=== PATIENT | female | born 1980 | race Caucasian/White ===

== ENCOUNTER 2017-02-03 10:12 | Emergency (ER) | payer MEDICAID ==
[~2017-02-03] VITALS: Wt 77.2 kg
[~2017-02-03 10:12] MED LIST: IBUP-1542 PO
[2017-02-03] MEDS ORDERED: LIDOCAINE/MYLANTA 40 ML BTL PO STA (10:42)
[2017-02-03] MEDS ORDERED: FAMOTIDINE 20 MG INJ IV STA (10:42)
[2017-02-03] MEDS ORDERED: SOD CHLORIDE 0.9% 1,000 ML IV STA (10:42)
[2017-02-03] MEDS ORDERED: ONDANSETRON 4 MG INJ IV STA (10:42)
[2017-02-03] MEDS ORDERED: KETOROLAC 30 MG INJ IV STA (10:42)
[2017-02-03 11:31] LABS: BASOPHILS % 0.3 % (0.0-2.0); EOSINOPHILS # 0.1 10^3/ul (0.0-0.5); HEMATOCRIT 37.3 % (37.0-47.0); HEMOGLOBIN 12.9 g/dl (12.0-16.0); LYMPHOCYTES # 2.2 10^3/ul (0.8-2.9); LYMPHOCYTES % 20.8 % (15.0-51.0); MEAN CORPUSCULAR HEMOGLOBIN 29.5 pg (29.0-33.0); MEAN CORPUSCULAR HGB CONC 34.6 g/dl (32.0-37.0); MEAN CORPUSCULAR VOLUME 85.2 fl (82.0-101.0); MEAN PLATELET VOLUME 10.2 fl (7.4-10.4); MONOCYTE # 0.6 10^3/ul (0.3-0.9); MONOCYTES % 5.3 % (0.0-11.0); NEUTROPHILS % 72.3 % (39.0-77.0); PLATELET COUNT 263 10^3/UL (140-415); RED BLOOD COUNT 4.38 10^6/ul (4.20-5.40); WHITE BLOOD COUNT 10.6 10^3/ul (4.8-10.8)
[2017-02-03 11:33] LABS: ADD UMIC NO; UR ASCORBIC ACID NEGATIVE (NEGATIVE); UR BILIRUBIN (Dip) NEGATIVE (NEGATIVE); UR BLOOD (Dip) NEGATIVE (NEGATIVE); UR CLARITY CLEAR (CLEAR); UR COLOR STRAW (YELLOW); UR GLUCOSE (Dip) NEGATIVE (NEGATIVE); UR KETONES (Dip) NEGATIVE (NEGATIVE); UR LEUKOCYTE ESTERASE (Dip) NEGATIVE Leu/ul (NEGATIVE); UR NITRITE (Dip) NEGATIVE (NEGATIVE); UR SPECIFIC GRAVITY (Dip) 1.008 (1.003-1.030); UR TOTAL PROTEIN (Dip) NEGATIVE (NEGATIVE); UR UROBILINOGEN (Dip) NEGATIVE (NEGATIVE)
--- NOTE | 2017-02-03 11:49 | RADRPT ---
PROCEDURE: US Abdomen (right upper quadrant). CLINICAL INDICATION: Abdominal pain. TECHNIQUE: Multiple real-time longitudinal and transverse images of the right upper quadrant of th e abdomen were acquired utilizing a curved array transducer. Images were reviewed on a high-resoluti on PACS workstation. COMPARISON: 03/23/2016. FINDINGS: The liver is normal in size with a slightly coarsened echotexture suggesting mild steatosis without focal mass or intrahepatic biliary dilatation. There is normal hepatopedal flow within the main por fannie vein. The gallbladder is surgically absent. The common bile duct measures 4.5 mm in maximal di mension. The visualized portions of the pancreas are unremarkable with obscuration of the tail of t he pancreas. No free fluid is identified. The right kidney measures 11.2 cm in length. There is normal echogenicity within the right kidney. There is no perinephric fluid collection. No hydronephrosis, mass, or calculus is seen. IMPRESSION: 1. Mildly coarsened echotexture of the liver suggesting mild steatosis. 2. Previous cholecystectomy without biliary tree dilatation. RPTAT: [facility] Physician Robert Date Time Electronically viewed and signed by Physician Robert on 02/03/2017 11:49 /
--- NOTE | 2017-02-03 12:02 | ERD ---
ER Documentation Chief Complaint Date/Time DATE: 02/03/17 TIME: 11:57 Chief Complaint low abd pain with nausea and vomiting and no dysuria noted. HPI This is a 36-year-old female presenting to the emergency department with upper epigastric abdominal pain, nausea and vomiting starting earlier today. Patient states since early this morning she has had 2 episodes of nonbloody nonbilious emesis and 6 episodes of nonbloody loose stool. Patient states she has epigastric pain that radiates upwards towards chest. No heart palpitations or chest pain. Patient states pain feels similar to when she had cholecystitis. Patient describes pain as constant and pulsating and rates pain 7/10. No back or flank pain. No lower abdominal pain. No dysuria, hematuria, urinary frequency or urgency. Patient denies fever or chills. Last menstrual period January 14, 2017. ROS All systems reviewed and are negative except as per history of present illness. Medications Home Meds Active Scripts Ondansetron Hcl* (Zofran*) 4 Mg Tablet, 4 MG PO Q6H for NAUSEA AND/OR VOMITING, #10 TAB Prov:TAMARA DAILEY NP 02/03/17 Ibuprofen* (Motrin*) 400 Mg Tab, 400 MG PO Q6, #30 TAB Prov:TAMARA DAILEY NP 02/03/17 Tramadol HCl (Tramadol HCl) 50 Mg Tablet, 50 MG PO Q4 Y for PAIN, #20 TAB Prov:TAMARA DAILEY NP 02/03/17 Ibuprofen* (Motrin*) 600 Mg Tab, 600 MG PO Q6, #15 TAB Prov:TAMARA DAILEY NP 03/23/16 Allergies Allergies: Coded Allergies: No Known Allergy (Unverified , 03/23/16) PMhx/Soc History of Surgery: No Anesthesia Reaction: No Hx Neurological Disorder: No Hx Respiratory Disorders: No Hx Cardiac Disorders: No Hx Psychiatric Problems: No Hx Miscellaneous Medical Probl: Yes (CHOLECYSTITIS) Hx Alcohol Use: No Hx Substance Use: No Hx Tobacco Use: No Smoking Status: Never smoker Physical Exam Vitals Vital Signs Date Time Temp Pulse Resp B/P Pulse Ox O2 Delivery O2 Flow Rate FiO2 02/03/17 13:08 98.3 63 20 108/61 99 Room Air 02/03/17 10:17 98.6 80 21 140/75 98 Physical Exam Const: No acute distress, alert Head: Atraumatic Eyes: Normal Conjunctiva ENT: Normal External Ears, Nose and Mouth. Neck: Full range of motion..~ No meningismus. Resp: Clear to auscultation bilaterally. No wheezing, rhonchi or crackles. No stridor or labored breathing. Cardio: Regular rate and rhythm, no murmurs Abd: Soft, non distended. Normal bowel sounds, Tenderness to epigastric region and right upper quadrant abdomen. Negative [place] sign. Skin: No petechiae or rashes Back: No midline or flank tenderness Ext: No cyanosis, or edema Neur: Awake and alert Psych: Normal Mood and Affect Result Diagram: 02/03/17 1100 02/03/17 1100 Results 24 hrs Laboratory Tests Test 02/03/17 11:00 02/03/17 11:10 White Blood Count 10.610^3/ul Red Blood Count 4.3810^6/ul Hemoglobin 12.9g/dl Hematocrit 37.3% Mean Corpuscular Volume 85.2fl Mean Corpuscular Hemoglobin 29.5pg Mean Corpuscular Hemoglobin Concent 34.6g/dl Red Cell Distribution Width 13.0% Platelet Count 21013^3/UL Mean Platelet Volume 10.2fl Neutrophils % 72.3% Lymphocytes % 20.8% Monocytes % 5.3% Eosinophils % 1.0% Basophils % 0.3% Nucleated Red Blood Cells % 0.0/100WBC Neutrophils # (Manual) 7.710^3/ul Lymphocytes # 2.210^3/ul Monocytes # 0.610^3/ul Eosinophils # 0.110^3/ul Basophils # 0.010^3/ul Nucleated Red Blood Cells # 0.010^3/ul Sodium Level 140mmol/L Potassium Level 3.9mmol/L Chloride Level 103mmol/L Carbon Dioxide Level 26mmol/L Anion Gap 15 Blood Urea Nitrogen 7mg/dl Creatinine 0.50mg/dl Glucose Level 98mg/dl Calcium Level 9.2mg/dl Total Bilirubin 0.3mg/dl Direct Bilirubin 0.00mg/dl Indirect Bilirubin 0.3mg/dl Aspartate Amino Transf (AST/SGOT) 20IU/L Alanine Aminotransferase (ALT/SGPT) 30IU/L Alkaline Phosphatase 82IU/L Total Protein 8.1g/dl Albumin 4.4g/dl Globulin 3.70g/dl Albumin/Globulin Ratio 1.18 Lipase 132U/L Urine Color STRAW Urine Clarity CLEAR Urine pH 7.0 Urine Specific [place] 1.008 Urine Ketones NEGATIVEmg/dL Urine Nitrite NEGATIVEmg/dL Urine Bilirubin NEGATIVEmg/dL Urine Urobilinogen NEGATIVEmg/dL Urine Leukocyte Esterase NEGATIVELeu/ul Urine Hemoglobin NEGATIVEmg/dL Urine Glucose NEGATIVEmg/dL Urine Total Protein NEGATIVEmg/dl Current Medications Medications (Trade) Dose Ordered Sig/Ella Route PRN Reason Start Time Stop Time Status Last Admin Dose Admin Sodium Chloride (NS) 1,000 ml @ 1,000 mls/hr Q1H STAT IV 02/03/17 10:42 02/03/17 11:41 DC 02/03/17 11:05 Ondansetron HCl (Zofran Inj) 4 mg ONCE STAT IV 02/03/17 10:42 02/03/17 10:46 DC 02/03/17 11:06 Famotidine (Pepcid Iv) 20 mg ONCE STAT IV 02/03/17 10:42 02/03/17 10:46 DC 02/03/17 11:06 Miscellaneous Medication (Gi Cocktail (2)) 40 ml ONCE STAT PO 02/03/17 10:42 02/03/17 10:46 DC 02/03/17 11:05 Ketorolac Tromethamine (Toradol) 30 mg ONCE STAT IV 02/03/17 10:42 02/03/17 10:46 DC 02/03/17 11:06 Procedures/[place] [id number] Rad[facility] Main Line: [phone] DIAGNOSTIC IMAGING REPORT Patient: ELDA LIPSCOMB : 1980 Age: 36 Sex: F MR #: [id number] DOS: 02/03/17 1042 Ordering MD: TAMARA DAILEY NP Location: [facility] Room/Bed: PROCEDURE: US Abdomen (right upper quadrant). CLINICAL INDICATION: Abdominal pain. TECHNIQUE: Multiple real-time longitudinal and transverse images of the right upper quadrant of the abdomen were acquired utilizing a curved array transducer. Images were reviewed on a high-resolution PACS workstation. COMPARISON: 03/23/2016. FINDINGS: The liver is normal in size with a slightly coarsened echotexture suggesting mild steatosis without focal mass or intrahepatic biliary dilatation. There is normal hepatopedal flow within the main portal vein. The gallbladder is surgically absent. The common bile duct measures 4.5 mm in maximal dimension. The visualized portions of the pancreas are unremarkable with obscuration of the tail of the pancreas. No free fluid is identified. The right kidney measures 11.2 cm in length. There is normal echogenicity within the right kidney. There is no perinephric fluid collection. No hydronephrosis, mass, or calculus is seen. IMPRESSION: 1. Mildly coarsened echotexture of the liver suggesting mild steatosis. 2. Previous cholecystectomy without biliary tree dilatation. MDM: This is a 36-year-old female presenting to emergency department with epigastric and right upper quadrant abdominal pain since early this morning. Patient has had vomiting and diarrhea. No fevers or chills. Nonbloody nonbilious emesis. Nonbloody loose stool. IV access obtained, labs drawn and patient given 1 L IV fluid bolus of normal saline. Patient given GI cocktail p.o. Patient given Pepcid, Zofran and Toradol IV. Upon reassessment, patient states pain has improved. CBC shows no significant anemia or infection. CMP shows no significant electrolyte imbalance. Liver enzymes are normal. Bilirubin is normal. Lipase is 132. Gallbladder US reviewed by radiologist as mildly coarsened echotexture of the liver suggesting mild steatosis. Low suspicion for acute surgical abdomen, obstruction, peritonitis, acute cholangitis, acute cholecystitis or pancreatitis. Patient is appropriate for outpatient management and can follow up with their PCP in 2-3 days. Patient instructed to return to ED sooner if pain worsens or is intolerable, high fever or new symptoms such as anorexia, not tolerating PO, severe diarrhea or chest pain. Patient verbalizes understanding. Patient given prescription for tramadol , zofran and ibuprofen. Disclaimer: Inadvertent spelling and grammatical errors are likely due to EHR/ dictation software use and do not reflect on the overall quality of patient care. Also, please note that the electronic time recorded on this note does not necessarily reflect the actual time of the patient encounter. Departure Diagnosis: Primary Impression: Abdominal pain Abdominal location: epigastric Qualified Code: R10.13 - Epigastric pain Condition: Stable TAMARA DAILEY NP Feb 03, 2017 12:02
[2017-02-03 12:06] LABS: ALBUMIN 4.4 g/dl (3.3-4.9); ALBUMIN/GLOBULIN RATIO 1.18; BILIRUBIN,INDIRECT 0.3 mg/dl (0-1.1); BILIRUBIN,TOTAL 0.3 mg/dl (0.2-1.3); CALCIUM 9.2 mg/dl (8.4-10.2); CREATININE 0.5 mg/dl (0.44-1.00); POTASSIUM 3.9 mmol/L (3.5-5.1); TOTAL PROTEIN 8.1 g/dl (6.1-8.1)
[2017-02-03] MEDS ORDERED: IBUP400T22 PO (12:58)
[2017-02-03] MEDS ORDERED: TRAM50TA2 PO (12:58)
[2017-02-03] MEDS ORDERED: ONDA4TAB8 PO (13:02)
[2017-02-03 13:08] VITALS: BP 108/61; PULSE 63; RESP 20; TEMP 98.3
== END 2017-02-03 13:13 | disposition home or self-care (01) ==
LOC: FTE 10:12
DX: R10.13 Epigastric pain (principal); R11.2 Nausea with vomiting, unspecified
CPT/HCPCS: 36415; 76705; 80053; 81003; 83690; 85025; 96374; 96375; J1885; J2405; J7030; Z7502; Z7610